=== PATIENT | male | born 1960 | race Caucasian/White ===

== ENCOUNTER → 2016-10-29 | Outpatient (CLI) | payer OTHER ==
--- NOTE | ~2016-10-29 | EXE ---
[facility] [place] [address] STRESS ECHOCARDIOGRAM Name: CHARLEY SUTTON Room #: REG [facility]#: [id number] Admission: 10/29/16 Attend Phys: Nicola Diaz, Discharge: Date of : 58 Date of Service: 10/29/16 1413 Report #: [id number] THIS REPORT FOR: //name// APPROVED REPORT Exam: Stress Echocardiogram Reason for Exam: Family hx. CP, dyspnea Patient Location: Out-Patient Stress Nurse: Yadira Diego RN HR: 79 bpm Rhythm: NSR Medical History Allergies: No known drug allergies Cardiac Risk Factors: Hyperlipidemia, HTN, FHX of CAD Procedure The patient underwent an Exercise Stress Test using the Reji Protocol. Blood pressure, heart rate, and EKG were monitored. An Echocardiogram was performed by smog technician in four stages in quad fashion. At peak stress, four selected images were obtained and placed side by side with resting images for comparison. Testing Details Test: Exercise stress testing was performed using a Reji protocol. HR Resting HR: 79 bpm Max Heart Rate (APMHR): 163 bpm Max HR Achieved: 157 bpm Target HR (85% APMHR): 138 bpm % of APMHR: 96 Recovery HR: 93 bpm HR response to stress: Normal HR response to stress BP Resting BP: 138/90 mmHg Max BP: 182/90 mmHg Recovery BP: 142/94 mmHg ECG Resting ECG: Sinus Rhythm Stress ECG: Sinus Rhythm Arrhythmia: None Recovery ECG: Sinus Rhythm [facility] [place] [address] STRESS ECHOCARDIOGRAM Name: CHARLEY SUTTON Room #: REG [facility]#: [id number] Admission: 10/29/16 Attend Phys: Nicola Diaz, Discharge: Date of : 58 Date of Service: 10/29/16 1413 Report #: [id number] Clinical Reason for Termination: moderate fatigue Exercise duration: 10mins 29sec min Exercise capacity: 13.70 METs Stress ECG Conclusion 1. SUBJECTIVELY NEGATIVE FOR ISCHEMIA 2. ELECTROCARDIOGRAPHICALLY NEGATIVE FOR ISCHEMIA 3. ADEQUATE FUNCTIONAL CAPACITY Pre-Stress Echo The resting Echocardiogram showed normal left ventricular contractility with an estimated Ejection Fraction of about 55-60%. Mild MR, Trace TR Post-Stress Echo The stress Echocardiogram showed normal left ventricular contractility with an estimated Ejection Fraction of about 65-70%. Clinical Normal augmentation of myocardial wall segments using a 17 segment model. Conclusion Clinical Response: Non-ischemic Stress ECG Response: Non-ischemic Stress Echo Images: Non-ischemic 1. LOW RISK STUDY Other Information Study Quality: Adequate Technically limited study due to lung artifact with post images. <Conclusion> 1. LOW RISK STUDY <ELECTRONICALLY SIGNED> By: Flaquito Treviño MD 10/29/16 1413 1413 141 Flaquito Treviño MD /INF
== END ==
LOC: CV 08:34
DX: R07.9 Chest pain, unspecified (principal)

== ENCOUNTER → 2018-12-08 | Outpatient (CLI) | payer OTHER ==
--- NOTE | 2018-12-08 12:06 | EXE ---
[facility] [address] [employer] [place] [address] STRESS ECHOCARDIOGRAM Name: CHARLEY SUTTON [id number] ������������� Admission: 12/08/18 ������������� Attend Phys: Nicola Diaz, Discharge: ��� ������������� ��� Date of : 58 Date of Service: 12/08/18 1206 �� Report #: [id number] �������� ��������������������������������������������[id number] THIS REPORT FOR: //name// APPROVED REPORT Study performed: 12/08/2018 10:16:35 Exam: Stress Echocardiogram Indication: Hypertension Patient Location: Out-Patient Room #: Echo lab 2 Status: routine Ht: 5 ft 9 in HR: 58 bpm BP: 144/86 mmHg Rhythm: Bradycardia Medical History Medical History: HTN, Hyperlipidemia Allergies: No known drug allergies Cardiac Risk Factors: HTN, Hyperlipidemia, FHX of CAD Exercise History: Physically active Procedure The patient underwent an Exercise Stress Test using the Reji Protocol. Blood pressure, heart rate, and EKG were monitored. An Echocardiogram was performed by converting technician in four stages in quad fashion. At peak stress, four selected images were obtained and placed side by side with resting images for comparison. Stress Test Details Stress Test: Exercise stress testing was performed using a Reji protocol. HR Resting HR: 57 bpm Max Heart Rate (APMHR): 161 bpm Max HR Achieved: 151 bpm Target HR (85% APMHR): 136 bpm % of APMHR: 93 Recovery HR: 88 bpm HR response to stress: Normal HR response to stress BP Resting BP: 144/86 mmHg Max BP: 184/80 mmHg Recovery BP: 140/84 mmHg BP response to stress: Normal blood pressure response to [facility] [address] [place] [address] STRESS ECHOCARDIOGRAM Name: CHARLEY SUTTON FLORENCIO Room #: REG [facility]#: [id number] ������������� Admission: 12/08/18 ������������� Attend Phys: Nicola Diaz, Discharge: ��� ������������� ��� Date of : 58 Date of Service: 12/08/18 1206 �� Report #: [id number] �������� ��������������������������������������������[id number] stress. ECG Clinical Reason for Termination: Maximal effort Exercise duration: 10 min sec Highest Stage Achieved: Stage 4: 4.2 mph at 16% grade. Exercise capacity: 13.4 METs Overall Exercise Capacity for Age: Good Pre-Stress Echo The resting Echocardiogram showed normal left ventricular contractility with an estimated Ejection Fraction of about >55%. Post-Stress Echo The stress Echocardiogram showed normal left ventricular contractility with an estimated Ejection Fraction of about 65-70%. Clinical Normal augmentation of myocardial wall segments using a 17 segment model. Conclusion Clinical Response: Non-ischemic Exercise Capacity: Average Stress ECG Response: Non-ischemic Stress Echo Images: Non-ischemic Other Information Study Quality: Adequate ��������������������������������������������� <ELECTRONICALLY SIGNED> ���������������������������������������� By: Nicola Diaz MD, [facility] ��������������������������������������������� 12/08/18 1206 1206 05 Nicola Diaz MD, FACC /INF
== END ==
LOC: CV 09:58
DX: I10 Essential (primary) hypertension (principal); R07.9 Chest pain, unspecified; R06.02 Shortness of breath; E78.01 Familial hypercholesterolemia; Z82.49 Family history of ischemic heart disease and other diseases of the circulatory system; E78.5 Hyperlipidemia, unspecified

== ENCOUNTER → 2019-11-09 | Outpatient (CLI) | payer OTHER | LOC: CAT 10:46 | DX: Z13.6 Encounter for screening for cardiovascular disorders (principal); I25.10 Atherosclerotic heart disease of native coronary artery without angina pectoris; E78.00 Pure hypercholesterolemia, unspecified ==

== ENCOUNTER → 2019-11-30 | Outpatient (CLI) | payer OTHER | LOC: SJCVCIMAG 08:46 | PROVIDERS: ATTEND Internal Medicine Cardiovascular Disease | DX: I25.10 Atherosclerotic heart disease of native coronary artery without angina pectoris (principal); I10 Essential (primary) hypertension; E78.01 Familial hypercholesterolemia; R53.83 Other fatigue; R07.89 Other chest pain; E78.5 Hyperlipidemia, unspecified ==

== ENCOUNTER → 2021-06-11 | Outpatient (CLI) | payer OTHER | LOC: SJCVCIMAG 08:16 | PROVIDERS: ATTEND Internal Medicine Cardiovascular Disease | DX: I10 Essential (primary) hypertension (principal); E78.5 Hyperlipidemia, unspecified; R93.1 Abnormal findings on diagnostic imaging of heart and coronary circulation; Z82.49 Family history of ischemic heart disease and other diseases of the circulatory system ==